=== PATIENT | female | born 1995 | race Caucasian/White ===

== ENCOUNTER 2025-04-29 08:48 | Outpatient (CLI) | payer OTHER, SELFPAY ==
--- OUTSIDE RECORDS SUMMARY | 2025-04-29 08:55 | XMS_ITS | Patient Health Record ---
Author Organization [facility] Address [address] [place] [address] Care Team Providers Care [employer] Clerk Name Role Phone None, None Primary Care Provider Luz Limon Unavailable [phone] Results Component Value Reference Range Notes Urine Culture and Sensitivit y Reviewed date:11/02/2024 09:15:47 AM Interpretation:Negative Performing Lab:CB, [id number], [id number] Vickey Robbins Notes/Report: 0 Received Date: [id number] CULTURE, URINE, ROUTINE SEE NOTE CULTURE, URINE, ROUTINE Micro Number: [id number] Test Status: Final Specimen Source: Urine Specimen Quality: Adequate Result: No Growth We received a preserved urine culture transport tube with either no order indicated or a source which is inappropriate for the test requested. A urine culture was performed. If this is not what you intended to order, please contact your local private client advisor immediately so that we can adjust our billing appropriately. You may also inquire about alternative or additional testing. CULTURE, AEROBIC AND ANAEROB IC W/GRAM STAIN Reviewed date:11/02/2024 09:15:31 AM Interpretation:Invalid Performing Lab:ELIJAH, [employer] [address], [employer][id number] Vickey Robbins Notes/Report: Received Date: [id number] CULTURE, ANAEROBIC BACTERIA W/GRAM STAIN CULTURE, ANAEROBIC BACTERIA W/GRAM STAIN Micro Number: [id number] Test Status: Final Specimen Source: Urine Specimen Quality: Inadequate Gram Stain: Test not performed. Result: Test not performed. No suitable specimen received. Please review the test requirements at testdirectory.[employer] CULTURE, AEROBIC BACTERIA CULTURE, AEROBIC BACTERIA Micro Number: [id number] Test Status: Final Specimen Source: Not given Specimen Quality: Inadequate Result: Test not performed. No suitable specimen received. Please review the test requirements at [email or web address].[employer] COMMENT: No source was provided. The specimen was tested and reported based upon the test code ordered. If this is incorrect, please contact client services. Urinalysis (IH) Reviewed date:10/28/2024 07:49:30 PM Interpretation: Performing Lab: Notes/Report: Blood Non-Hemolyzed Ca 10 negative - c a. 250 Naif/ml Urobili 2 normal - 12 mg/dL Bili + negative - large Protein neg negative - 500 mg/dL Nitrites neg negative - positive Ketone neg negative - large mg/dL Ascorbic Acid neg trace - large Glucose neg negative - > 1000 mg/dL pH 6 5.0 - 9.0 Spec. Gr. 1.010 1.000 - 1.030 LEUK Ca 75 negative - ca. 5 00 Patrice/ml Reason For Referral No Information Medications Medication SIG (Take, Route, Frequency, Duration) Notes Start Date End Date Status Citalopram Hydrobromide 10 MG 1 tablet Orally Once a day Active Social History AUDIT-C (Standard) Question Answer Notes Did you have a drink contain ing alcohol in the past year? Yes How often did you have a dri nk containing alcohol in the past year? Never (0 point) How many drinks did you have on a typical day when you were drinking in the past year? 3 or 4 drinks (1 point) How often did you have six o r more drinks on one occasion in the past year? 2 to 4 times a month (2 points) Points 3 Interpretation Positive Vital Signs Temperature 98.2 degrees Fahrenheit 10/28/2024 Respiratory Rate 18 /min 10/28/2024 Blood pressure diastolic 64 mm Hg 10/28/2024 Height 061 in 10/28/2024 Blood pressure systolic 112 mm Hg 10/28/2024 Weight 0138 lbs 10/28/2024 BMI 26.07 kg/m2 10/28/2024 Encounters Encounter Location Date Provider Diagnosis [address] [id number] 10/28/2024 Luz Valentino UTI (urinary tract infection) N39.0 ; Urinary frequency R35.0 and Cellulitis of nose, external J34.0 Assessments Encounter Date Diagnosis (ICD Code) Assessment Notes Treatment Notes Treatment Clinical Notes Section Notes 10/28/2024 UTI (urinary tract infection) (ICD-10 - N39.0) 10/28/2024 Urinary frequency (ICD-10 - R35.0) 10/28/2024 Cellulitis of nose, external (ICD-10 - J34.0) Plan Of Treatment No Information Insurance Providers Payer Name Payer Address Payer Phone Subscriber Number Group Number Insured Name Patient Relationship to Insured Coverage Start Date Coverage End Date [facility] [address] [place], [place] [id number] Padmini Wright Self - patient is the insured Medical (General) History Surgical History Surgery Date(Month/Year) Tonsillectomy 2006 Gastric Sleeve 12/16/24 Hospitalization History Reason Date(Month/Year) As above
[2025-04-29 08:56] LABS: Coronavirus 19, PCR Not Detected (NotDetected); Influenza A, PCR Not Detected (NotDetected); Influenza B, PCR Not Detected (NotDetected)
== END 2025-04-29 23:59 | disposition home or self-care (01) ==
PROVIDERS: Visit Provider Nurse Practitioner
DX: J06.9 Acute upper respiratory infection, unspecified (principal)
CPT/HCPCS: 87631